=== PATIENT | male | born 1950 | race Caucasian/White ===

== ENCOUNTER 2018-01-03 06:56 | Day surgery (SDC) | payer MEDICARE, BC ==
[2018-01-03] MEDS ORDERED: PROPOFOL 10 MG/ML VIAL IV ONE (06:57)
[2018-01-03] MEDS ORDERED: LIDOCAINE 1% MDV (10MG/ML) 20ML VIAL SQ ONE (06:57)
--- NOTE | 2018-01-15 12:30 | Operative Note ---
DATE OF SURGERY: 01/03/2018 SURGEON: Bennett Carlson MD OPERATION: COLONOSCOPY. INDICATIONS: This is a 67-year-old male with history of colon polyps who presented for surveillance colonoscopy. POSTOPERATIVE DIAGNOSES: 1. A 3 mm descending colon polyp that was removed by cold biopsy forceps. 2. Otherwise normal colon and terminal ileum. ANESTHESIA: Sedation is per Anesthesia. Pulse oximetry was monitored throughout the procedure to maintain O2 saturation of 90% or greater. Supplemental oxygen was administered via nasal cannula. Cardiac and vital signs were monitored throughout the duration of the procedure, and they were stable. The procedure of colonoscopy and risks and alternatives of the procedure, including the risk of bleeding and perforation, among others, were explained to the patient who voiced understanding and agreed to have the procedure done. Physical examination was performed, and the patient was found stable for sedation. PROCEDURE: The patient was placed in the left lateral position. Sedation was initiated. A digital rectal exam was performed and showed some mild external hemorrhoids with no palpable rectal masses. An Olympus PCF-180AL colonoscope was then inserted into the rectum under direct visualization. It was advanced to the cecum without difficulty. The ileocecal valve and appendiceal orifice were identified and photographed. The colonic mucosa was carefully examined upon introduction of the colonoscope. There were no lesions noted. The colonoscope was then withdrawn while carefully examining the colonic mucosal surfaces. After the ileocecal valve was intubated, the terminal ileal mucosa was inspected for about 10 cm. The cecum, ascending colon, and transverse colon mucosa appeared normal. In the descending colon was a 3 mm sessile polyp that was noted and was removed by cold biopsy forceps. The rest of the descending colon, sigmoid colon, and rectum appeared normal. Retroflexion was performed and grade 1 internal hemorrhoids were noted. The colonoscope was then withdrawn and the procedure was terminated. The patient tolerated the procedure well without any immediate complications. The patient remained with stable vital signs and was transferred to the recovery room. RECOMMENDATIONS: 1. The patient should be on a high-fiber diet. 2. The patient is to have a repeat colonoscopy for surveillance in 3 or 5 years depending on the histology of the polyp. Thank you for allowing me to participate in the care of your patient. CC: Pat CORDON
== END 2018-01-03 09:16 | disposition home or self-care (01) ==
LOC: HOP 06:56
PROVIDERS: ATTEND Internal Medicine Gastroenterology
DX: Z09 Encounter for follow-up examination after completed treatment for conditions other than malignant neoplasm (principal); Z86.010 Personal history of colon polyps; D12.4 Benign neoplasm of descending colon; I10 Essential (primary) hypertension